=== PATIENT | female | born 1995 | race American Indian/Alaskan Native ===

== ENCOUNTER 2017-11-11 16:02 | Emergency (ER) | payer OTHER, SELFPAY ==
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
[2017-11-11 16:17] VITALS: BP 128/66; PULSE 82; RESP 14; TEMP 37.1; O2SAT 97; BMI 25.0
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
[2017-11-11 17:32] VITALS: BP 119/64; PULSE 71; RESP 16; O2SAT 100
[2017-11-11] MEDS: IBUPROFEN 400 MG TABLET PO (17:32)
[2017-11-11] MEDS: TET,DIPH,PERTUSS(ACELL),VAC/PF 0.5 ML SYRINGE IM (17:34)
--- NOTE | 2017-11-11 18:02 | PC.NURSE ---
debridement and dressing performed by Ashley PAGE.
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
== END 2017-11-11 18:54 | disposition home or self-care (01) ==
PROVIDERS: Emergency Provider Nurse Practitioner Family
DX: T23.061A Burn of unspecified degree of back of right hand, initial encounter (principal); X08.8XXA Exposure to other specified smoke, fire and flames, initial encounter; Y93.G3 Activity, cooking and baking
CPT/HCPCS: 90471; 99282; 99283; 90715